=== PATIENT | female | born 1960 | race Caucasian/White ===

== ENCOUNTER 2018-04-16 16:04 | Outpatient (CLI) | payer BC | END 2018-04-16 16:05 | disposition home or self-care (01) | LOC: BICMAMMO 16:04 | PROVIDERS: ATTEND Obstetrics & Gynecology | DX: Z12.31 Encounter for screening mammogram for malignant neoplasm of breast (principal); R92.1 Mammographic calcification found on diagnostic imaging of breast | CPT/HCPCS: 77063; 77067 ==

== ENCOUNTER 2018-06-30 15:21 | Outpatient (CLI) | payer BC ==
--- NOTE | 2018-06-30 16:40 | BD ---
Exam: DEXA Bone Density 06/30/18 COMPARISON: None. HISTORY: Postmenopausal female undergoing screening for osteoporosis. Lumbar Spine: BMD (g/cm2) L1 0.878 T-Score: -1.0 L2 0.911 T-Score: -1.1 L3 0.906 T-Score: -1.6 L4 0.848 T-Score: -1.9 L1-L4 0.885 T-Score: -1.5 Femoral Neck: 0.701 T-Score: -1.3 Total Femur: 0.866 T-Score: -0.5 Impression: Osteopenia within the lumbar spine and femoral neck, correlating with a moderately increased risk for fracture. POS: [facility]
--- NOTE | 2018-06-30 17:09 | RAD ---
THREE VIEWS RIGHT HAND: 06/30/18 HISTORY: Right thumb and finger pain. Pain in the metacarpals. Patient fell in January. FINDINGS: There is mild osteoarthritis involving the first carpometacarpal joint. There is no evidence of a fra cture, dislocation, or other osseous abnormality involving the right hand. IMPRESSION: No acute osseous abnormality. POS: [facility]
== END 2018-06-30 15:22 | disposition home or self-care (01) ==
LOC: BICMAMMO 15:21
PROVIDERS: ATTEND Family Medicine
DX: Z13.820 Encounter for screening for osteoporosis (principal); M79.644 Pain in right finger(s); M85.89 Other specified disorders of bone density and structure, multiple sites
CPT/HCPCS: 77080

== ENCOUNTER 2020-12-20 08:55 | Day surgery (SDC) | payer BC ==
[2020-12-20] MEDS ORDERED: diphenhydrAMINE 25 MG CAP PO PRN (09:11)
[2020-12-20] MEDS ORDERED: Acetaminophen 500 MG TAB PO PRN (09:11)
[2020-12-20] MEDS ORDERED: Ustekinumab 390 MG in Sodium Chloride 0.9% 250 ML 172 ML IV SCH (09:15)
[2020-12-20] MEDS ORDERED: Sodium Chloride 0.9% 20 ML ONE (09:27)
[2020-12-20 10:38] VITALS: BP 132/63; TEMP 98.2
== END 2020-12-20 11:31 | disposition home or self-care (01) ==
LOC: ONC/OP 08:55
PROVIDERS: ATTEND Internal Medicine
DX: K50.90 Crohn's disease, unspecified, without complications (principal); Z88.2 Allergy status to sulfonamides; Z88.8 Allergy status to other drugs, medicaments and biological substances
CPT/HCPCS: 96413; J3358; J7050